=== PATIENT | male | born 1970 | race Caucasian/White ===

== ENCOUNTER → 2020-10-31 12:42 | Outpatient (CLI) | payer OTHER ==
[~2020-10-31 12:42] MED LIST: IBUPROFEN800 MG PO; MEDROL4 MG PO
== END | disposition home or self-care (01) ==
LOC: LAB 12:42
PROVIDERS: ATTEND Obstetrics & Gynecology
DX: Z20.818 Contact with and (suspected) exposure to other bacterial communicable diseases (principal); Z20.828 Contact with and (suspected) exposure to other viral communicable diseases